=== PATIENT | female | born 1995 | race African-American/Black ===

== ENCOUNTER 2017-04-24 13:06 | Emergency (ER) | payer OTHER ==
[~2017-04-24] VITALS: Ht 152.4 cm; Wt 55.2 kg
[~2017-04-24 13:06] MED LIST: BACTRIM,SEPT1 TABLET PO; MOTRIN600 MG PO; PRENATAL COMPL1 EACH PO
[2017-04-24 13:31] LABS: ADD MIUA? YES; BILIRUBIN NEGATIVE; BLOOD NEGATIVE; COLOR YELLOW ((YELLOW)); GLUCOSE (STRIP) NEGATIVE; KETONES NEGATIVE; LEUKOCYTES MODERATE; NITRITE NEGATIVE; PROTEIN (STRIP) 30; SPECIFIC GRAVITY 1.024 (1.000-1.030)
[2017-04-24 13:41] LABS: BACTERIA RARE /HPF; EPITHELIAL CELLS 1+ /HPF; MUCUS 1+ /LPF; RED BLOOD CELLS 0-5 /HPF (0-5); WHITE BLOOD CELLS 0-5 /HPF (0-5)
[2017-04-24 13:44] LABS: HEMATOCRIT 36.7 % (36.0-46.0); MCH 25.4 PG (29.0-34.0); MCHC 32.2 G/DL (30.0-36.0); MCV 79.1 FL (83-99); RBC DIS.WIDTH-SD 46.1 % (39-53); RED BLOOD COUNT 4.64 M/uL (3.80-5.20); WHITE BLOOD COUNT 3.3 K/uL (4.1-10.2)
[2017-04-24 13:57] LABS: CHLORIDE 104 mEq/L (99-109); POTASSIUM 4.1 mEq/L (3.7-5.4); SODIUM 138 mEq/L (136-147)
[2017-04-24 13:58] LABS: GLUCOSE 86 mg/dL (70-99)
[2017-04-24 14:00] LABS: ANION GAP 13 MEQ/L (2-14)
[2017-04-24 14:02] LABS: GFR ESTIMATE (CALCULATED) > 59 mL/min/
[2017-04-24 14:03] LABS: UREA NITROGEN (BUN) 7 mg/dL (9-23)
[2017-04-24 14:32] LABS: QUANTITATIVE HCG 139554.5 MIU/ML
[2017-04-24 15:06] LABS: MEAN PLAT.VOLUME 11.1 uM^3 (9.5-12.4); PLAT.SUFFICIENCY ADEQUATE; PLATELET COUNT 310 K/uL (156-360)
[2017-04-24] MEDS ORDERED: ZOFRAN ODT4 MG PO (15:14)
[2017-04-24 15:50] VITALS: BP 119/73
== END 2017-04-24 15:50 | disposition home or self-care (01) ==
LOC: EME 13:06
PROVIDERS: Physician Assistant
DX: O26.899 Other specified pregnancy related conditions, unspecified trimester (principal); M54.5 Low back pain; Z3A.00 Weeks of gestation of pregnancy not specified
CPT/HCPCS: 80048; 81003; 84702; 85027; 99281; 99284

== ENCOUNTER 2017-10-28 19:16 | Emergency (ER) | payer OTHER ==
[~2017-10-28] VITALS: Ht 152.4 cm; Wt 61.9 kg
[~2017-10-28 19:16] MED LIST changes: +ZOFRAN ODT4 MG PO
[2017-10-28 22:18] LABS: APPEARANCE CLOUDY ((CLEAR)); BILIRUBIN NEGATIVE; BLOOD NEGATIVE; COLOR YELLOW ((YELLOW)); GLUCOSE (STRIP) NEGATIVE; KETONES NEGATIVE; LEUKOCYTES TRACE; NITRITE NEGATIVE; PROTEIN (STRIP) 30; SPECIFIC GRAVITY 1.021 (1.000-1.030)
[2017-10-29 00:16] LABS: RED BLOOD CELLS 0-5 /HPF (0-5)
[2017-10-29 00:17] LABS: BACTERIA 3+ /HPF; EPITHELIAL CELLS 2+ /HPF; MUCUS RARE /LPF; WHITE BLOOD CELLS 0-5 /HPF (0-5)
[2017-10-29 00:45] VITALS: BP 128/77
== END 2017-10-29 00:45 | disposition home or self-care (01) ==
LOC: EME 19:16
PROVIDERS: Physician Assistant
DX: J10.1 Influenza due to other identified influenza virus with other respiratory manifestations (principal); R35.0 Frequency of micturition
CPT/HCPCS: 81003; 84703; 87502; 87651 90; 99281; 99284

== ENCOUNTER 2017-12-30 23:14 | Emergency (ER) | payer OTHER ==
[~2017-12-30] VITALS: Ht 152.4 cm; Wt 58.5 kg
[2017-12-31 00:22] LABS: HEMATOCRIT 30.5 % (36.0-46.0); HEMOGLOBIN 9.9 G/DL (11.9-15.5); MCH 24.5 PG (29.0-34.0); MCHC 32.5 G/DL (30.0-36.0); MCV 75.5 FL (83-99); RBC DIS.WIDTH-CV 17.7 % (11.8-14.6); RBC DIS.WIDTH-SD 48.4 % (39-53); RED BLOOD COUNT 4.04 M/uL (3.80-5.20); WHITE BLOOD COUNT 3.9 K/uL (4.1-10.2)
[2017-12-31 00:37] LABS: CHLORIDE 104 mEq/L (99-109); POTASSIUM 3.4 mEq/L (3.7-5.4); SODIUM 138 mEq/L (136-147)
[2017-12-31 00:38] LABS: GLUCOSE 64 mg/dL (70-99)
[2017-12-31 00:42] LABS: CREATININE 0.6 mg/dL (0.6-1.3); GFR ESTIMATE (CALCULATED) > 59 mL/min/
[2017-12-31 00:43] LABS: UREA NITROGEN (BUN) 8 mg/dL (9-23)
[2017-12-31 01:09] LABS: PLAT.SUFFICIENCY ADEQUATE; PLATELET COUNT 274 K/uL (156-360)
[2017-12-31 01:13] LABS: QUANTITATIVE HCG 109130.1 MIU/ML
[2017-12-31 02:15] LABS: APPEARANCE CLOUDY ((CLEAR)); BILIRUBIN NEGATIVE; BLOOD NEGATIVE; COLOR YELLOW ((YELLOW)); GLUCOSE (STRIP) NEGATIVE; KETONES NEGATIVE; LEUKOCYTES SMALL; NITRITE POSITIVE; PROTEIN (STRIP) 30; SPECIFIC GRAVITY 1.027 (1.000-1.030)
[2017-12-31 02:18] LABS: BACTERIA 3+ /HPF; EPITHELIAL CELLS RARE /HPF; MUCUS 4+ /LPF; RED BLOOD CELLS 0-5 /HPF (0-5); UCUL ADDED? YES; WHITE BLOOD CELLS 20-30 /HPF (0-5)
[2017-12-31] MEDS ORDERED: KEFLEX500 MG PO (02:54)
[2017-12-31] MEDS ORDERED: PRENATAL VITAM1 EAC7 PO (02:54)
[2017-12-31] MEDS ORDERED: ZOFRAN ODT8 MG PO (02:54)
[2017-12-31 03:31] VITALS: BP 111/77
== END 2017-12-31 03:35 | disposition home or self-care (01) ==
LOC: EXP 23:14 → EME 23:14 → EXP 12-31 03:35
DX: O23.41 Unspecified infection of urinary tract in pregnancy, first trimester (principal); O26.891 Other specified pregnancy related conditions, first trimester; M54.5 Low back pain; O21.9 Vomiting of pregnancy, unspecified; Z3A.11 11 weeks gestation of pregnancy
CPT/HCPCS: 80048; 81003; 84702; 85027; 87077; 87086; 87186; 99281; 99284; J0696

== ENCOUNTER 2018-01-29 21:30 | Emergency (ER) | payer OTHER ==
[~2018-01-29] VITALS: Ht 152.4 cm; Wt 57.2 kg
[~2018-01-29 21:30] MED LIST changes: +KEFLEX500 MG PO; +PRENATAL VITAM1 EAC7 PO; +ZOFRAN ODT8 MG PO
[2018-01-29 22:15] LABS: APPEARANCE CLOUDY ((CLEAR)); BILIRUBIN NEGATIVE; BLOOD NEGATIVE; COLOR YELLOW ((YELLOW)); GLUCOSE (STRIP) NEGATIVE; KETONES NEGATIVE; LEUKOCYTES LARGE; NITRITE NEGATIVE; PROTEIN (STRIP) 30; SPECIFIC GRAVITY 1.026 (1.000-1.030)
[2018-01-29 22:20] LABS: HEMATOCRIT 27.1 % (36.0-46.0); MCH 25.4 PG (29.0-34.0); MCHC 33.2 G/DL (30.0-36.0); MCV 76.6 FL (83-99); PLATELET COUNT 206 K/uL (156-360); RBC DIS.WIDTH-CV 16.6 % (11.8-14.6); RED BLOOD COUNT 3.54 M/uL (3.80-5.20); WHITE BLOOD COUNT 4.9 K/uL (4.1-10.2)
[2018-01-29 22:24] LABS: BACTERIA RARE /HPF; CALCIUM OXALATE CRYSTALS 3+ /HPF; EPITHELIAL CELLS 2+ /HPF; MUCUS 1+ /LPF; UCUL ADDED? YES
[2018-01-29 22:31] LABS: ALBUMIN 3.7 g/dL (3.2-4.8)
[2018-01-29 22:32] LABS: CHLORIDE 102 mEq/L (99-109); POTASSIUM 3.3 mEq/L (3.7-5.4); SODIUM 136 mEq/L (136-147)
[2018-01-29 22:34] LABS: GLUCOSE 97 mg/dL (70-99); TOTAL PROTEIN 6.6 g/dL (6.4-8.3)
[2018-01-29 22:36] LABS: TOTAL BILIRUBIN 0.2 mg/dL (0.0-1.0)
[2018-01-29 22:37] LABS: ALKALINE PHOSPHATASE 47 IU/L (3-129)
[2018-01-29 22:38] LABS: CREATININE 0.6 mg/dL (0.6-1.3); GFR ESTIMATE (CALCULATED) > 59 mL/min/
[2018-01-29 22:39] LABS: AST (GOT) 17 IU/L (2-34); UREA NITROGEN (BUN) 5 mg/dL (9-23)
[2018-01-29 22:41] LABS: ALT (GPT) 21 IU/L (3-49)
[2018-01-29 23:24] LABS: QUANTITATIVE HCG 40767.9 MIU/ML
[2018-01-30] MEDS ORDERED: AUGMENTIN875 MG PO (00:19)
[2018-01-30 00:27] VITALS: BP 110/72
== END 2018-01-30 00:28 | disposition home or self-care (01) ==
LOC: RME 21:30 → EME 21:30 → RME 01-30 00:28
PROVIDERS: Physician Assistant
DX: O23.42 Unspecified infection of urinary tract in pregnancy, second trimester (principal); O99.012 Anemia complicating pregnancy, second trimester; D64.9 Anemia, unspecified; O99.282 Endocrine, nutritional and metabolic diseases complicating pregnancy, second trimester; E87.6 Hypokalemia; Z3A.14 14 weeks gestation of pregnancy
CPT/HCPCS: 76801; 80053; 81003; 84702; 85027; 87086; 99281; 99285